=== PATIENT | female | born 1990 | race Caucasian/White ===

== ENCOUNTER 2021-09-08 20:17 | Emergency (ER) | payer BC ==
[~2021-09-08] VITALS: Ht 170.2 cm; Wt 110.7 kg
[2021-09-08 20:20] VITALS: BP 140/94
--- NOTE | 2021-09-08 20:39 | PHYS DOC ---
Adult General HPI HPI Patient is a 30-year-old female who presents with a chief complaint of anxiety and lightheadedness. States she was started on 25 mg of extended releas metoprolol 2 days ago she has had intermittent sinus tachycardia around 120 that was caught on her heart monitor. States she was driving home, started feeling anxious and lightheaded and took her pulse but it was only around 100. States that here in the emergency department symptoms have resolved and she is feeling well. Denies any recent trauma, travels, illnesses, fevers, chest pain, shortness of breath, abdominal pain, nausea, vomiting, dysuria, hematuria, blood in the stool. Denies any alcohol or drug use. Does states she drinks a little soda. States she is due for her menstrual cycle in a day or 2 but is not currently bleeding. Review of Systems Review of Systems Review of systems otherwise unremarkable except noted in HPI Physical Exam Physical Exam Constitutional: Well developed, well nourished, no acute distress, non-toxic appearance. [] HENT: Normocephalic, atraumatic, bilateral external ears normal, oropharynx moist, no oral exudates, nose normal. [] Eyes: conjunctiva normal, no discharge. [] Neck: Normal range of motion, no tenderness, supple, no stridor. [] Cardiovascular:Heart rate regular rhythm, no murmur [] Lungs & Thorax: No respiratory distress Skin: Warm, dry, no erythema, no rash. [] Back: No tenderness, no CVA tenderness. [] Extremities: No tenderness, no cyanosis, no clubbing, ROM intact, no edema. [] Neurologic: Alert and oriented X 3, normal motor function, normal sensory function, able to sit, stand and walk without issue, no focal deficits noted. [] Psychologic: Affect normal, judgement normal, mood normal. [] EKG EKG [] Radiology/Procedures Radiology/Procedures [] Heart Score C/O Chest Pain: No Risk Factors: Risk Factors: DM, Current or recent (<one month) smoker, HTN, HLP, family history of CAD, obesity. Risk Scores: Risk Factors: DM, Current or recent (<one month) smoker, HTN, HLP, family history of CAD, obesity. Course & Med Decision Making Course & Med Decision Making Patient is a 30-year-old female who presents with anxiety and lightheadedness Vital signs not concerning. Physical exam noted above. EKG with normal rate, normal rhythm, no STEMI. Asymptomatic in the ED. Discussed all findings with patient. Advised to stay away from supplements especially containing caffeine and any caffeinated beverage. Advised to maybe cease 1 day of her metoprolol, tomorrow and call her primary care physician to discuss adverse side effects and may be medication management/change. Gave strict return precautions to the ED. Patient grateful, verbalized understanding and agreed with plan of discharge [] Dragon Disclaimer Dragon Disclaimer This electronic medical record was generated, in whole or in part, using a voice recognition dictation system. Departure Departure: Impression: Primary Impression: Adverse drug reaction Additional Impression: Lightheadedness Disposition: HOME / SELF CARE / HOMELESS Condition: GOOD Referrals: PCP,UNKNOWN (PCP) ZANA NEVES MD Patient Instructions: Dizziness Additional Instructions: Thank you for coming into the emergency department tonight and allowing us to take care of you. Please read the attached information carefully to go over things we discussed. As we discussed please stay well-hydrated and stay away from anything containing caffeine. Please hold your metoprolol for 1 day tomorrow, so you can call your primary care physician and update on your ED visit, set up a follow-up appointment as soon as possible and discuss need for continuation of medication, change or stoppage. Please go to the nearest emergency department as soon as you can with new or concerning symptoms as we discussed. Problem Qualifiers SCHUYLER DOMINGUEZ MD Sep 08, 2021 20:39
--- NOTE | 2021-09-09 20:01 | EKG ---
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
--- NOTE | 2021-09-26 10:15 | EKG ---
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
== END 2021-09-08 21:05 | disposition home or self-care (01) ==
LOC: ER 20:17
DX: R42 Dizziness and giddiness (principal); F41.9 Anxiety disorder, unspecified; T44.7X6A Underdosing of beta-adrenoreceptor antagonists, initial encounter; Y92.89 Other specified places as the place of occurrence of the external cause
CPT/HCPCS: 93005; 99283